=== PATIENT | male | born 1995 | race African-American/Black ===

== ENCOUNTER → 2024-01-12 | Outpatient (REF) ==
[2024-01-12 15:41] LABS: APPEARANCE, URINE CLEAR (CLEAR); BACTERIA, URINE AUTO NEGATIVE (NEGATIVE); BILIRUBIN, URINE AUTO NEGATIVE (NEGATIVE); BLOOD, URINE BLOOD 2+ (NEGATIVE); COLOR, URINE YELLOW (YELLOW); GLUCOSE, URINE (UA) AUTO NEGATIVE (NEGATIVE); KETONE, URINE AUTO NEGATIVE (NEGATIVE); LEUKOCYTE ESTERASE, URINE AUTO NEGATIVE (NEGATIVE); MUCUS, URINE SMALL (NEGATIVE); NITRITE, URINE AUTO NEGATIVE (NEGATIVE); PROTEIN, URINE AUTO NEGATIVE (NEGATIVE); RBC, URINE AUTO 0 /HPF (0-3); SPECIFIC GRAVITY URINE AUTO 1.025 (1.002-1.035); SQUAMOUS EPITHELIAL CELL UR AU 0 /HPF (0-6); WBC, URINE AUTO 1 /HPF (0-3)
[2024-01-12 15:44] LABS: HEMATOCRIT 45.3 % (42.0-52.0); MEAN CORPUSCULAR HEMOGLOBIN 29.2 pg (27.0-33.0); MEAN CORPUSCULAR HGB CONC 33.1 g/dl (32.0-36.5); MEAN CORPUSCULAR VOLUME 88.1 fl (80.0-96.0); PLATELET COUNT, AUTOMATED 319 10^3/uL (150-450); RED BLOOD COUNT 5.14 10^6/uL (4.30-6.10); WHITE BLOOD COUNT 6.7 10^3/uL (4.0-10.0)
== END ==
LOC: M PLAIMG 13:12
PROVIDERS: ATTEND Nurse Practitioner Family
DX: R06.02 Shortness of breath (principal)

== ENCOUNTER 2024-06-30 06:24 | Emergency (ER) | payer OTHER ==
[~2024-06-30] VITALS: Ht 180.3 cm; Wt 96.8 kg
[2024-06-30] MEDS: ACETAMINOPHEN 325 MG TAB PO ONE (08:50)
[2024-06-30] MEDS: KETOROLAC 60MG 2ML VIAL IM ONE (08:51)
[2024-06-30] MEDS: LIDOCAINE 5% (LIDODERM) PATCH TD ONE (08:51)
[2024-06-30] MEDS ORDERED: LIDO5DIS41 TOP (09:43)
[2024-06-30] MEDS ORDERED: ACET325C5 PO (09:43)
[2024-06-30] MEDS ORDERED: IBUP-1022 PO (09:43)
[2024-06-30] MEDS ORDERED: TIZA4CAP PO (09:43)
[2024-06-30 10:15] VITALS: BP 127/61; TEMP 97.5; O2SAT 98
== END 2024-06-30 10:16 | disposition home or self-care (01) ==
LOC: M ED 06:24
DX: M54.41 Lumbago with sciatica, right side (principal); M54.17 Radiculopathy, lumbosacral region; Z79.1 Long term (current) use of non-steroidal anti-inflammatories (NSAID); Z79.899 Other long term (current) drug therapy
CPT/HCPCS: 72110; 72202; 96372; 99283; J1885